=== PATIENT | male | born 1975 | race Caucasian/White ===

== ENCOUNTER 2016-12-02 00:15 | Emergency (ER) | payer SELFPAY ==
[~2016-12-02] VITALS: Ht 175.3 cm; Wt 96.0 kg
[2016-12-02] MEDS ORDERED: LIDOCAINE HCL 1% 10 ML VIAL INJ ONE (01:45)
[2016-12-02] MEDS ORDERED: CeFAZolin 2 GM/DEXTROSE 50 ML IV ONE (01:45)
[2016-12-02] MEDS ORDERED: CEPHALEXIN MONOHYDRATE 500 MG CAPSULE PO ONE (01:45)
[2016-12-02] MEDS ORDERED: PERTUSS(ACELL),DIPH,TET VAC/PF 0.5 ML VIAL IM ONE ×2 (01:47→02:00)
[2016-12-02] MEDS ORDERED: POVIDONE-IODINE 10% 120 ML SOLUTION TP ONE ×2 (01:47→02:00)
[2016-12-02] MEDS ORDERED: MORPHINE SULFATE 2 MG/ML SYRINGE IVP ONE (02:15)
[2016-12-02 02:54] VITALS: BP 145/77
== END 2016-12-02 02:56 | disposition home or self-care (01) ==
LOC: EMS 00:18
DX: S61.411A Laceration without foreign body of right hand, initial encounter (principal); M79.5 Residual foreign body in soft tissue; W26.8XXA Contact with other sharp object(s), not elsewhere classified, initial encounter; Y93.89 Activity, other specified; Y92.89 Other specified places as the place of occurrence of the external cause; Y99.8 Other external cause status
CPT/HCPCS: 12002; 73130; 90471; 90715; 96374; 96375; 99284; J0690; J2270; J3490